=== PATIENT | male | born 1945 | race Caucasian/White ===

== ENCOUNTER → 2017-10-17 | Outpatient (CLI) | payer MEDICARE, BC | END | disposition home or self-care (01) | LOC: HKI 15:07 | DX: M23.221 Derangement of posterior horn of medial meniscus due to old tear or injury, right knee (principal) | CPT/HCPCS: G0463 ==

== ENCOUNTER → 2018-04-09 | Outpatient (CLI) | payer MEDICARE, BC | END | disposition home or self-care (01) | LOC: PUL 13:40 | DX: Z00.00 Encounter for general adult medical examination without abnormal findings (principal); J44.9 Chronic obstructive pulmonary disease, unspecified; Z79.899 Other long term (current) drug therapy | CPT/HCPCS: 94060; 94726; 94729 ==

== ENCOUNTER 2019-01-10 16:39 | Inpatient (IN) | payer MEDICARE, BC ==
[2019-01-10 17:13] LABS: ADD MAN DIFF? NO
[2019-01-10 17:18] LABS: ABNORMAL IP MESSAGE 1; BASOPHILS % 0.3 % (0.0-2.0); EOSINOPHILS # 0.1 10^3/ul (0.0-0.5); EOSINOPHILS % 1.5 % (0.0-7.0); HEMATOCRIT 30.1 % (42.0-52.0); HEMOGLOBIN 10.4 g/dl (14.0-18.0); LYMPHOCYTES # 0.5 10^3/ul (0.8-2.9); LYMPHOCYTES % 7.2 % (15.0-51.0); MEAN CORPUSCULAR HEMOGLOBIN 31.9 pg (29.0-33.0); MEAN CORPUSCULAR HGB CONC 34.6 g/dl (32.0-37.0); MEAN CORPUSCULAR VOLUME 92.3 fl (82.0-101.0); MEAN PLATELET VOLUME 10.1 fl (7.4-10.4); MONOCYTE # 0.8 10^3/ul (0.3-0.9); MONOCYTES % 10.2 % (0.0-11.0); NEUTROPHIL # 5.9 10^3/ul (1.6-7.5); NEUTROPHILS % 79.7 % (39.0-77.0); PLATELET COUNT 243 10^3/UL (140-415); POSITIVE DIFF @See below; RED BLOOD COUNT 3.26 10^6/ul (4.70-6.10); RED CELL DISTRIBUTION WIDTH 11.4 % (11.5-14.5)
[2019-01-10 17:18] LABS: WHITE BLOOD COUNT 7.5 10^3/ul (4.8-10.8)
[2019-01-10 17:37] LABS: INR 1.15; PROTIME 14.8 Sec (11.9-14.9); PT RATIO 1.2
[2019-01-10 17:38] LABS: PARTIAL THROMBOPLASTIN TIME 47.5 Sec (23.0-35.0)
[2019-01-10 17:52] LABS: ALANINE AMINOTRANSFERASE 13 IU/L (13-69); ALBUMIN 4.3 g/dl (3.3-4.9); ALBUMIN/GLOBULIN RATIO 1.07; ALKALINE PHOSPHATASE 91 IU/L (42-121); ANION GAP 14 (5-13); ASPARTATE AMINO TRANSFERASE 18 IU/L (15-46); BILIRUBIN,INDIRECT 0.1 mg/dl (0-1.1); BILIRUBIN,TOTAL 0.1 mg/dl (0.2-1.3); BLOOD UREA NITROGEN 39 mg/dl (7-20); CALCIUM 9.9 mg/dl (8.4-10.2); CARBON DIOXIDE 20 mmol/L (21-31); CHLORIDE 100 mmol/L (97-110); CREATININE 3.07 mg/dl (0.61-1.24); GLUCOSE 126 mg/dl (70-220); POTASSIUM 3.7 mmol/L (3.5-5.1); SODIUM 134 mmol/L (135-144); TOTAL PROTEIN 8.3 g/dl (6.1-8.1)
[2019-01-10 18:00] LABS: ADD UMIC YES; UR ASCORBIC ACID NEGATIVE (NEGATIVE); UR BILIRUBIN (Dip) NEGATIVE (NEGATIVE); UR BLOOD (Dip) 1+ mg/dL (NEGATIVE); UR CLARITY CLEAR (CLEAR); UR COLOR YELLOW (YELLOW); UR GLUCOSE (Dip) NEGATIVE (NEGATIVE); UR KETONES (Dip) NEGATIVE (NEGATIVE); UR LEUKOCYTE ESTERASE (Dip) NEGATIVE Leu/ul (NEGATIVE); UR NITRITE (Dip) NEGATIVE (NEGATIVE); UR RBC 1 /HPF (0-5); UR TOTAL PROTEIN (Dip) 2+ mg/dl (NEGATIVE); UR UROBILINOGEN (Dip) NEGATIVE (NEGATIVE); UR WBC 8 /HPF (0-5)
[2019-01-10] MEDS ORDERED: ACETAMINOPHEN 325 MG TAB PO (19:00)
[2019-01-10] MEDS ORDERED: ONDANSETRON 4 MG INJ IV (19:00)
[2019-01-10] MEDS: D5W-0.45 NACL + KCL 10 MEQ 1,000 ML IV (23:21)
[2019-01-11] MEDS: ONDANSETRON (ODT) 4 MG TAB ODT (04:15)
[2019-01-11] MEDS: PANTOPRAZOLE (EC) 40 MG TAB PO (05:38)
[2019-01-11 05:59] LABS: ADD MAN DIFF? NO
[2019-01-11 06:06] LABS: ABNORMAL IP MESSAGE 1; BASOPHILS % 0.1 % (0.0-2.0); EOSINOPHILS # 0.1 10^3/ul (0.0-0.5); EOSINOPHILS % 1.4 % (0.0-7.0); HEMATOCRIT 27.6 % (42.0-52.0); HEMOGLOBIN 9.7 g/dl (14.0-18.0); LYMPHOCYTES # 0.4 10^3/ul (0.8-2.9); LYMPHOCYTES % 4.6 % (15.0-51.0); MEAN CORPUSCULAR HEMOGLOBIN 32.2 pg (29.0-33.0); MEAN CORPUSCULAR HGB CONC 35.1 g/dl (32.0-37.0); MEAN CORPUSCULAR VOLUME 91.7 fl (82.0-101.0); MEAN PLATELET VOLUME 10.3 fl (7.4-10.4); MONOCYTE # 0.9 10^3/ul (0.3-0.9); MONOCYTES % 11.3 % (0.0-11.0); NEUTROPHIL # 6.4 10^3/ul (1.6-7.5); NEUTROPHILS % 81.6 % (39.0-77.0); PLATELET COUNT 202 10^3/UL (140-415); POSITIVE DIFF @See below; RED BLOOD COUNT 3.01 10^6/ul (4.70-6.10); RED CELL DISTRIBUTION WIDTH 11.4 % (11.5-14.5)
[2019-01-11 06:06] LABS: WHITE BLOOD COUNT 7.9 10^3/ul (4.8-10.8)
[2019-01-11 06:36] LABS: IRON 18 ug/dl (35-150)
[2019-01-11 06:38] LABS: ANION GAP 13 (5-13); BLOOD UREA NITROGEN 39 mg/dl (7-20); CALCIUM 9.5 mg/dl (8.4-10.2); CARBON DIOXIDE 19 mmol/L (21-31); CHLORIDE 101 mmol/L (97-110); CREATININE 2.84 mg/dl (0.61-1.24); GLUCOSE 116 mg/dl (70-220); POTASSIUM 3.4 mmol/L (3.5-5.1); SODIUM 133 mmol/L (135-144)
[2019-01-11 06:45] LABS: % IRON SATURATION 5 % SAT (22-52); TOTAL IRON BINDING CAPACITY 344 ug/dl (241-421)
[2019-01-11 07:36] LABS: ERYTHROCYTE SEDIMENTATION RATE > 130 mm/Hr (0-20)
[2019-01-11 07:40] LABS: FOLATE 6.2 ng/ml (2.8-20.0)
[2019-01-11] MEDS: ESCITALOPRAM 10 MG TAB PO (08:50)
[2019-01-11] MEDS: NIFEdipine (XL) 30 MG TAB PO (08:50)
[2019-01-11] MEDS: D5W-0.45 NACL + KCL 10 MEQ 1,000 ML IV ×2 (12:34→15:00)
[2019-01-11] MEDS: ALBUTEROL HFA 8 GM INHALER INH (14:06)
[2019-01-11] MEDS: ACETAMINOPHEN 325 MG TAB PO ×2 (14:06→20:50)
[2019-01-11 15:20] LABS: AMYLASE 193 U/L (11-123)
[2019-01-11 15:33] LABS: LIPASE 2711 U/L (23-300)
[2019-01-11] MEDS: POTASSIUM CHLORIDE (SR) 20 MEQ TAB PO (16:24)
[2019-01-11] MEDS: SOD CHLORIDE 0.9% 1,000 ML IV (16:25)
[2019-01-11] MEDS: EPOETIN ALFA-EPBX (NON-ESRD 10,000 UNIT/ML VIAL SC (17:36)
[2019-01-11] MEDS: BARIUM SULF 2% 450 ML BTL (BERRY SMOOTHIE) PO (18:10)
[2019-01-11 19:19] LABS: SODIUM,URINE RANDOM 45 mmol/L (30-90)
[2019-01-11 19:23] LABS: AADO2 Arterial 42.8 mmHg (7.0-24.0); Allen Test ACCEPTAB; Arterial Base Excess -7.8 mmol/L (-3.0-3); Arterial Blood Gas Oxygen Sat 95.8 mmHG (95.0-100.0); Arterial COHb 0.3 % (0.0-3.0); Arterial Fraction of Oxyhgb 95.3 % (93.0-99.0); Arterial MetHb 0.2 % (0.0-1.5); Arterial pCO2 23.1 mmhg (35-45); MODE ROOM AIR; Site Right Radial
[2019-01-11 19:24] LABS: CREATININE,URINE RANDOM 56.22 mg/dl (20-370); PROTEIN/CREAT RATIO 2.17 RATIO
[2019-01-11] MEDS: MONTELUKAST 10 MG TAB PO (20:50)
[2019-01-11] MEDS: TAMSULOSIN (SR) 0.4 MG CAP PO (20:50)
[2019-01-11] MEDS: ROPINIROLE 0.25 MG TAB PO (20:50)
[2019-01-12 05:01] LABS: OCCULT BLOOD STOOL NEGATIVE (NEGATIVE)
[2019-01-12] MEDS: SOD CHLORIDE 0.9% 1,000 ML IV ×3 (05:02→21:53)
[2019-01-12] MEDS: PANTOPRAZOLE (EC) 40 MG TAB PO (05:03)
[2019-01-12 07:27] LABS: ADD MAN DIFF? NO
[2019-01-12 07:32] LABS: ABNORMAL IP MESSAGE 1; BASOPHILS % 0.2 % (0.0-2.0); EOSINOPHILS # 0.2 10^3/ul (0.0-0.5); EOSINOPHILS % 2.6 % (0.0-7.0); HEMATOCRIT 28.8 % (42.0-52.0); HEMOGLOBIN 9.6 g/dl (14.0-18.0); LYMPHOCYTES # 0.4 10^3/ul (0.8-2.9); LYMPHOCYTES % 6.9 % (15.0-51.0); MEAN CORPUSCULAR HEMOGLOBIN 31.2 pg (29.0-33.0); MEAN CORPUSCULAR HGB CONC 33.3 g/dl (32.0-37.0); MEAN CORPUSCULAR VOLUME 93.5 fl (82.0-101.0); MEAN PLATELET VOLUME 10.9 fl (7.4-10.4); MONOCYTE # 0.7 10^3/ul (0.3-0.9); MONOCYTES % 12.3 % (0.0-11.0); NEUTROPHIL # 4.4 10^3/ul (1.6-7.5); NEUTROPHILS % 77.1 % (39.0-77.0); PLATELET COUNT 210 10^3/UL (140-415); POSITIVE DIFF @See below; RED BLOOD COUNT 3.08 10^6/ul (4.70-6.10); RED CELL DISTRIBUTION WIDTH 11.4 % (11.5-14.5)
[2019-01-12 07:32] LABS: WHITE BLOOD COUNT 5.7 10^3/ul (4.8-10.8)
[2019-01-12 07:51] LABS: ANION GAP 12 (5-13); BLOOD UREA NITROGEN 32 mg/dl (7-20); CALCIUM 9.5 mg/dl (8.4-10.2); CARBON DIOXIDE 20 mmol/L (21-31); CHLORIDE 103 mmol/L (97-110); CREATININE 2.77 mg/dl (0.61-1.24); GLUCOSE 99 mg/dl (70-220); MAGNESIUM 2.1 mg/dl (1.7-2.5); PHOSPHORUS 4.2 mg/dl (2.5-4.9); POTASSIUM 3.7 mmol/L (3.5-5.1); SODIUM 135 mmol/L (135-144)
[2019-01-12] MEDS: ACETAMINOPHEN 325 MG TAB PO ×2 (07:51→16:51)
[2019-01-12 08:32] LABS: ERYTHROCYTE SEDIMENTATION RATE > 130 mm/Hr (0-20)
[2019-01-12] MEDS: ESCITALOPRAM 10 MG TAB PO (09:01)
[2019-01-12] MEDS: NIFEdipine (XL) 30 MG TAB PO (09:01)
[2019-01-12 11:46] LABS: PROSTATE SPECIFIC ANTIGEN 1.9 ng/ml (0.0-4.0)
[2019-01-12 11:48] LABS: CARCINOEMBRYONIC ANTIGEN 1.2 ng/ml (0.0-5.0)
[2019-01-12 11:52] LABS: CANCER ANTIGEN 19-9 9.7 U/ml (0.0-37.0)
[2019-01-12] MEDS ORDERED: LIDOCAINE 2% (SDV) 5 ML INJ (12:13)
[2019-01-12] MEDS ORDERED: GLYCOPYRROLATE 0.4 MG INJ (12:13)
[2019-01-12] MEDS: PROPOFOL 20 ML (12:13)
[2019-01-12] MEDS ORDERED: SOD FERRIC GLUC COMPLX 125 MG in SOD CHLORIDE 0.9% 100 ML IVPB (13:00)
[2019-01-12 13:03] LABS: ADD UMIC YES; UR ASCORBIC ACID NEGATIVE (NEGATIVE); UR BILIRUBIN (Dip) NEGATIVE (NEGATIVE); UR BLOOD (Dip) 2+ mg/dL (NEGATIVE); UR CLARITY CLEAR (CLEAR); UR COLOR YELLOW (YELLOW); UR GLUCOSE (Dip) NEGATIVE (NEGATIVE); UR KETONES (Dip) NEGATIVE (NEGATIVE); UR LEUKOCYTE ESTERASE (Dip) NEGATIVE Leu/ul (NEGATIVE); UR NITRITE (Dip) NEGATIVE (NEGATIVE); UR RBC 5 /HPF (0-5); UR SPECIFIC GRAVITY (Dip) 1.009 (1.003-1.030); UR TOTAL PROTEIN (Dip) 2+ mg/dl (NEGATIVE); UR UROBILINOGEN (Dip) NEGATIVE (NEGATIVE); UR WBC 6 /HPF (0-5)
[2019-01-12] MEDS: SOD FERRIC GLUC COMPLX 125 MG in SOD CHLORIDE 0.9% 100 ML IVPB (13:25)
[2019-01-12 18:08] LABS: OCCULT BLOOD STOOL NEGATIVE (NEGATIVE)
[2019-01-12] MEDS ORDERED: AL HYDROX/MG HYDROX/SIMETH 30 ML CUP (19:53)
[2019-01-12] MEDS: MONTELUKAST 10 MG TAB PO (20:45)
[2019-01-12] MEDS: TAMSULOSIN (SR) 0.4 MG CAP PO (20:45)
[2019-01-12] MEDS: ROPINIROLE 0.25 MG TAB PO (20:45)
[2019-01-12] MEDS: AL HYDROX/MG HYDROX/SIMETH 30 ML CUP PO (20:48)
[2019-01-13] MEDS: ACETAMINOPHEN 325 MG TAB PO ×3 (00:11→21:09)
[2019-01-13] MEDS: ALBUTEROL HFA 8 GM INHALER INH ×3 (00:11→21:09)
[2019-01-13 05:21] LABS: ADD MAN DIFF? NO
[2019-01-13 05:25] LABS: WHITE BLOOD COUNT 5.4 10^3/ul (4.8-10.8)
[2019-01-13 05:25] LABS: ABNORMAL IP MESSAGE 1; BASOPHILS % 0.4 % (0.0-2.0); EOSINOPHILS # 0.2 10^3/ul (0.0-0.5); EOSINOPHILS % 4.2 % (0.0-7.0); HEMOGLOBIN 9.5 g/dl (14.0-18.0); LYMPHOCYTES # 0.6 10^3/ul (0.8-2.9); LYMPHOCYTES % 10.9 % (15.0-51.0); MEAN CORPUSCULAR HEMOGLOBIN 31.5 pg (29.0-33.0); MEAN CORPUSCULAR HGB CONC 33.9 g/dl (32.0-37.0); MEAN CORPUSCULAR VOLUME 92.7 fl (82.0-101.0); MEAN PLATELET VOLUME 10.3 fl (7.4-10.4); MONOCYTE # 0.7 10^3/ul (0.3-0.9); MONOCYTES % 13.6 % (0.0-11.0); NEUTROPHIL # 3.8 10^3/ul (1.6-7.5); NEUTROPHILS % 69.6 % (39.0-77.0); PLATELET COUNT 209 10^3/UL (140-415); POSITIVE DIFF @See below; RED BLOOD COUNT 3.02 10^6/ul (4.70-6.10); RED CELL DISTRIBUTION WIDTH 11.5 % (11.5-14.5)
[2019-01-13 05:52] LABS: ALANINE AMINOTRANSFERASE 20 IU/L (13-69); ALBUMIN 3.2 g/dl (3.3-4.9); ALBUMIN/GLOBULIN RATIO 0.88; ALKALINE PHOSPHATASE 75 IU/L (42-121); AMYLASE 148 U/L (11-123); ANION GAP 11 (5-13); ASPARTATE AMINO TRANSFERASE 29 IU/L (15-46); BILIRUBIN,INDIRECT 0.2 mg/dl (0-1.1); BILIRUBIN,TOTAL 0.2 mg/dl (0.2-1.3); BLOOD UREA NITROGEN 28 mg/dl (7-20); CALCIUM 9.6 mg/dl (8.4-10.2); CARBON DIOXIDE 21 mmol/L (21-31); CHLORIDE 107 mmol/L (97-110); CREATININE 2.43 mg/dl (0.61-1.24); GLUCOSE 94 mg/dl (70-220); LIPASE 1408 U/L (23-300); MAGNESIUM 2.1 mg/dl (1.7-2.5); PHOSPHORUS 4.3 mg/dl (2.5-4.9); SODIUM 139 mmol/L (135-144); TOTAL PROTEIN 6.8 g/dl (6.1-8.1)
[2019-01-13] MEDS: PANTOPRAZOLE (EC) 40 MG TAB PO (06:20)
[2019-01-13] MEDS: ESCITALOPRAM 10 MG TAB PO (08:12)
[2019-01-13] MEDS: NIFEdipine (XL) 30 MG TAB PO (08:12)
[2019-01-13] MEDS: SOD CHLORIDE 0.9% 1,000 ML IV (11:41)
[2019-01-13 12:12] LABS: LACTATE DEHYDROGENASE 292 IU/L (313-618)
[2019-01-13] MEDS: SOD FERRIC GLUC COMPLX 125 MG in SOD CHLORIDE 0.9% 100 ML IVPB (13:29)
[2019-01-13] MEDS: TAMSULOSIN (SR) 0.4 MG CAP PO (21:08)
[2019-01-13] MEDS: MONTELUKAST 10 MG TAB PO (21:08)
[2019-01-13] MEDS: ROPINIROLE 0.25 MG TAB PO (21:08)
[2019-01-13] MEDS: GUAIFENESIN/DM 5ML CUP PO (21:42)
[2019-01-14] MEDS: SOD CHLORIDE 0.9% 1,000 ML IV (02:09)
[2019-01-14 05:01] LABS: ADD MAN DIFF? NO
[2019-01-14 05:13] LABS: ABNORMAL IP MESSAGE 1; BASOPHILS % 0.4 % (0.0-2.0); EOSINOPHILS # 0.2 10^3/ul (0.0-0.5); EOSINOPHILS % 4.9 % (0.0-7.0); HEMOGLOBIN 9.1 g/dl (14.0-18.0); LYMPHOCYTES # 0.6 10^3/ul (0.8-2.9); LYMPHOCYTES % 11.5 % (15.0-51.0); MEAN CORPUSCULAR HEMOGLOBIN 30.8 pg (29.0-33.0); MEAN CORPUSCULAR HGB CONC 33.7 g/dl (32.0-37.0); MEAN CORPUSCULAR VOLUME 91.5 fl (82.0-101.0); MEAN PLATELET VOLUME 10.4 fl (7.4-10.4); MONOCYTE # 0.6 10^3/ul (0.3-0.9); MONOCYTES % 11.5 % (0.0-11.0); NEUTROPHIL # 3.4 10^3/ul (1.6-7.5); NEUTROPHILS % 70.7 % (39.0-77.0); PLATELET COUNT 205 10^3/UL (140-415); POSITIVE DIFF @See below; RED BLOOD COUNT 2.95 10^6/ul (4.70-6.10); RED CELL DISTRIBUTION WIDTH 11.6 % (11.5-14.5)
[2019-01-14 05:13] LABS: WHITE BLOOD COUNT 4.9 10^3/ul (4.8-10.8)
[2019-01-14 05:33] LABS: ALANINE AMINOTRANSFERASE 30 IU/L (13-69); ALBUMIN 3.2 g/dl (3.3-4.9); ALBUMIN/GLOBULIN RATIO 0.94; ALKALINE PHOSPHATASE 69 IU/L (42-121); AMYLASE 108 U/L (11-123); ANION GAP 11 (5-13); ASPARTATE AMINO TRANSFERASE 31 IU/L (15-46); BILIRUBIN,INDIRECT 0.1 mg/dl (0-1.1); BILIRUBIN,TOTAL 0.1 mg/dl (0.2-1.3); BLOOD UREA NITROGEN 23 mg/dl (7-20); CALCIUM 9.3 mg/dl (8.4-10.2); CARBON DIOXIDE 18 mmol/L (21-31); CHLORIDE 108 mmol/L (97-110); CREATININE 2.33 mg/dl (0.61-1.24); GLUCOSE 90 mg/dl (70-220); LIPASE 748 U/L (23-300); MAGNESIUM 1.9 mg/dl (1.7-2.5); POTASSIUM 3.3 mmol/L (3.5-5.1); SODIUM 137 mmol/L (135-144); TOTAL PROTEIN 6.6 g/dl (6.1-8.1)
[2019-01-14] MEDS: PANTOPRAZOLE (EC) 40 MG TAB PO (06:17)
[2019-01-14] MEDS: MEGESTROL (40 MG/ML) 10ML CUP PO (08:37)
[2019-01-14] MEDS: MOMETASONE 0.24 GM INHALER INH ×2 (08:37→20:49)
[2019-01-14] MEDS: ESCITALOPRAM 10 MG TAB PO (08:38)
[2019-01-14] MEDS: NIFEdipine (XL) 30 MG TAB PO (08:38)
[2019-01-14 08:52] LABS: ERYTHROCYTE SEDIMENTATION RATE > 130 mm/Hr (0-20)
[2019-01-14] MEDS: POTASSIUM CHLORIDE (SR) 10 MEQ TAB PO (09:10)
[2019-01-14 10:22] LABS: PARTIAL THROMBOPLASTIN TIME 50.4 Sec (23.0-35.0)
[2019-01-14 10:48] LABS: COLLAGEN/EPI 93 Secs. (51-198)
[2019-01-14 11:43] LABS: COMPLEMENT C3 138 mg/dl (88-165); COMPLEMENT C4 24 mg/dl (14-44)
[2019-01-14 12:28] LABS: HEPATITIS C VIRAL ANTIBODY NEGATIVE (NEGATIVE)
[2019-01-14 12:30] LABS: HEPATITIS B SURFACE ANTIBODY NEGATIVE (NEGATIVE)
[2019-01-14] MEDS: SOD FERRIC GLUC COMPLX 125 MG in SOD CHLORIDE 0.9% 100 ML IVPB (13:54)
[2019-01-14] MEDS: EPOETIN ALFA-EPBX (NON-ESRD 10,000 UNIT/ML VIAL SC (17:53)
[2019-01-14] MEDS: TAMSULOSIN (SR) 0.4 MG CAP PO (20:48)
[2019-01-14] MEDS: ROPINIROLE 0.25 MG TAB PO (20:48)
[2019-01-14] MEDS: MONTELUKAST 10 MG TAB PO (20:48)
[2019-01-14] MEDS: ALBUTEROL HFA 8 GM INHALER INH (21:04)
[2019-01-14] MEDS: ACETAMINOPHEN 325 MG TAB PO (21:04)
[2019-01-15] MEDS: PANTOPRAZOLE (EC) 40 MG TAB PO (05:58)
[2019-01-15 06:44] LABS: ADD MAN DIFF? NO
[2019-01-15 06:52] LABS: WHITE BLOOD COUNT 5.9 10^3/ul (4.8-10.8)
[2019-01-15 06:52] LABS: BASOPHILS % 0.3 % (0.0-2.0); EOSINOPHILS # 0.3 10^3/ul (0.0-0.5); EOSINOPHILS % 4.3 % (0.0-7.0); HEMATOCRIT 25.9 % (42.0-52.0); HEMOGLOBIN 8.9 g/dl (14.0-18.0); LYMPHOCYTES # 0.7 10^3/ul (0.8-2.9); LYMPHOCYTES % 12.6 % (15.0-51.0); MEAN CORPUSCULAR HEMOGLOBIN 31.6 pg (29.0-33.0); MEAN CORPUSCULAR HGB CONC 34.4 g/dl (32.0-37.0); MEAN CORPUSCULAR VOLUME 91.8 fl (82.0-101.0); MEAN PLATELET VOLUME 10.2 fl (7.4-10.4); MONOCYTE # 0.6 10^3/ul (0.3-0.9); MONOCYTES % 9.5 % (0.0-11.0); NEUTROPHIL # 4.2 10^3/ul (1.6-7.5); NEUTROPHILS % 71.6 % (39.0-77.0); PLATELET COUNT 246 10^3/UL (140-415); RED BLOOD COUNT 2.82 10^6/ul (4.70-6.10); RED CELL DISTRIBUTION WIDTH 11.7 % (11.5-14.5)
[2019-01-15 07:17] LABS: PROTEIN, TOTAL 6.2 g/dL (6.1-8.1)
[2019-01-15 07:20] LABS: ANION GAP 9 (5-13); BLOOD UREA NITROGEN 21 mg/dl (7-20); CALCIUM 9.2 mg/dl (8.4-10.2); CARBON DIOXIDE 19 mmol/L (21-31); CHLORIDE 110 mmol/L (97-110); CREATININE 2.16 mg/dl (0.61-1.24); GLUCOSE 106 mg/dl (70-220); MAGNESIUM 1.9 mg/dl (1.7-2.5); POTASSIUM 3.4 mmol/L (3.5-5.1); SODIUM 138 mmol/L (135-144)
[2019-01-15] MEDS ORDERED: D5-NS + KCL 40 MEQ 1,000 ML IV ×2 (08:00→08:13)
[2019-01-15] MEDS: ESCITALOPRAM 10 MG TAB PO (09:42)
[2019-01-15] MEDS: POTASSIUM CHLORIDE (SR) 20 MEQ TAB PO (09:42)
[2019-01-15] MEDS: MEGESTROL (40 MG/ML) 10ML CUP PO (09:43)
[2019-01-15] MEDS: NIFEdipine (XL) 30 MG TAB PO (09:43)
[2019-01-15] MEDS: CYANOCOBALAMIN 1000 MCG INJ IM (09:43)
[2019-01-15] MEDS: SOD CHLORIDE 0.9% 1,000 ML IV (09:44)
[2019-01-15] MEDS: MOMETASONE 0.24 GM INHALER INH ×2 (09:44→21:58)
[2019-01-15 14:31] LABS: ANA SCREEN NEGATIVE (NEGATIVE)
[2019-01-15] MEDS: SOD FERRIC GLUC COMPLX 125 MG in SOD CHLORIDE 0.9% 100 ML IVPB (15:08)
[2019-01-15 16:06] LABS: MYELOPEROXIDASE ANTIBODY <1.0 AI; PROTEINASE-3 ANTIBODY <1.0 AI
[2019-01-15] MEDS: PHYTONADIONE 5 MG in DEXTROSE 5% 50 ML IVPB (17:42)
[2019-01-15 18:31] LABS: COMPLEMENT, TOTAL (CH50) >60 U/mL (31-60)
[2019-01-15] MEDS: TAMSULOSIN (SR) 0.4 MG CAP PO (22:03)
[2019-01-15] MEDS: ROPINIROLE 0.25 MG TAB PO (22:03)
[2019-01-15] MEDS: ACETAMINOPHEN 325 MG TAB PO (22:04)
[2019-01-15] MEDS: MONTELUKAST 10 MG TAB PO (22:04)
[2019-01-15 23:22] LABS: ALBUMIN 2.9 g/dL (3.8-4.8); ALPHA-1-GLOBULINS 0.5 g/dL (0.2-0.3); ALPHA-2-GLOBULINS 1.1 g/dL (0.5-0.9); BETA 2 GLOBULINS 0.3 g/dL (0.2-0.5); BETA GLOBULINS 0.5 g/dL (0.4-0.6); GAMMA GLOBULINS 0.9 g/dL (0.8-1.7)
[2019-01-16] MEDS: PANTOPRAZOLE (EC) 40 MG TAB PO (05:05)
[2019-01-16] MEDS: SOD CHLORIDE 0.9% 1,000 ML IV (05:22)
[2019-01-16 05:41] LABS: ADD MAN DIFF? NO
[2019-01-16 05:49] LABS: BASOPHILS % 0.5 % (0.0-2.0); EOSINOPHILS # 0.3 10^3/ul (0.0-0.5); EOSINOPHILS % 4.4 % (0.0-7.0); HEMATOCRIT 26.6 % (42.0-52.0); HEMOGLOBIN 9.1 g/dl (14.0-18.0); LYMPHOCYTES # 0.8 10^3/ul (0.8-2.9); LYMPHOCYTES % 12.8 % (15.0-51.0); MEAN CORPUSCULAR HEMOGLOBIN 31.7 pg (29.0-33.0); MEAN CORPUSCULAR HGB CONC 34.2 g/dl (32.0-37.0); MEAN CORPUSCULAR VOLUME 92.7 fl (82.0-101.0); MEAN PLATELET VOLUME 10.2 fl (7.4-10.4); MONOCYTE # 0.5 10^3/ul (0.3-0.9); MONOCYTES % 8.6 % (0.0-11.0); NEUTROPHIL # 4.4 10^3/ul (1.6-7.5); NEUTROPHILS % 70.9 % (39.0-77.0); PLATELET COUNT 248 10^3/UL (140-415); RED BLOOD COUNT 2.87 10^6/ul (4.70-6.10); RED CELL DISTRIBUTION WIDTH 11.9 % (11.5-14.5)
[2019-01-16 05:49] LABS: WHITE BLOOD COUNT 6.2 10^3/ul (4.8-10.8)
[2019-01-16] MEDS: ALBUTEROL HFA 8 GM INHALER INH (05:55)
[2019-01-16 05:56] LABS: ALANINE AMINOTRANSFERASE 31 IU/L (13-69); ALBUMIN 3.2 g/dl (3.3-4.9); ALKALINE PHOSPHATASE 82 IU/L (42-121); ASPARTATE AMINO TRANSFERASE 29 IU/L (15-46); BILIRUBIN,INDIRECT 0.1 mg/dl (0-1.1); BILIRUBIN,TOTAL 0.1 mg/dl (0.2-1.3); TOTAL PROTEIN 6.6 g/dl (6.1-8.1)
[2019-01-16 06:02] LABS: INR 1.07; PT RATIO 1.1
[2019-01-16 06:03] LABS: PARTIAL THROMBOPLASTIN TIME 52.7 Sec (23.0-35.0)
[2019-01-16 06:05] LABS: ANION GAP 8 (5-13); BLOOD UREA NITROGEN 17 mg/dl (7-20); CALCIUM 9.4 mg/dl (8.4-10.2); CARBON DIOXIDE 17 mmol/L (21-31); CHLORIDE 113 mmol/L (97-110); CREATININE 2.01 mg/dl (0.61-1.24); GLUCOSE 102 mg/dl (70-220); MAGNESIUM 1.7 mg/dl (1.7-2.5); PHOSPHORUS 3.6 mg/dl (2.5-4.9); POTASSIUM 3.8 mmol/L (3.5-5.1); SODIUM 138 mmol/L (135-144)
[2019-01-16 06:10] LABS: LIPASE 674 U/L (23-300)
[2019-01-16] MEDS: MEGESTROL (40 MG/ML) 10ML CUP PO (09:00)
[2019-01-16] MEDS: MOMETASONE 0.24 GM INHALER INH (09:48)
[2019-01-16] MEDS: NIFEdipine (XL) 30 MG TAB PO (09:54)
[2019-01-16] MEDS: ESCITALOPRAM 10 MG TAB PO (09:54)
[2019-01-16] MEDS: CYANOCOBALAMIN 1000 MCG INJ IM (09:54)
[2019-01-16] MEDS: ACETAMINOPHEN 325 MG TAB PO ×2 (09:54→21:01)
[2019-01-16] MEDS: FENTAnyl 50 MCG/ML VIAL (12:28)
[2019-01-16] MEDS: LIDOCAINE 1% (MPF) 5 ML VIAL ×2 (12:43)
[2019-01-16] MEDS: MIDAZOLAM 1 MG/ML 2 ML INJ (13:10)
[2019-01-16] MEDS: SOD FERRIC GLUC COMPLX 125 MG in SOD CHLORIDE 0.9% 100 ML IVPB (14:31)
[2019-01-16 16:02] LABS: CREATININE, RANDOM URINE 49 mg/dL (20-320); PROTEIN/CREATININE RATIO 1510 mg/g creat (22-128)
[2019-01-16] MEDS: EPOETIN ALFA-EPBX (NON-ESRD 10,000 UNIT/ML VIAL SC (18:22)
[2019-01-16 19:06] LABS: ADD UMIC YES; UR ASCORBIC ACID NEGATIVE (NEGATIVE); UR BILIRUBIN (Dip) NEGATIVE (NEGATIVE); UR BLOOD (Dip) 1+ mg/dL (NEGATIVE); UR CLARITY CLEAR (CLEAR); UR COLOR STRAW (YELLOW); UR GLUCOSE (Dip) NEGATIVE (NEGATIVE); UR KETONES (Dip) NEGATIVE (NEGATIVE); UR LEUKOCYTE ESTERASE (Dip) TRACE Leu/ul (NEGATIVE); UR NITRITE (Dip) NEGATIVE (NEGATIVE); UR RBC 1 /HPF (0-5); UR SPECIFIC GRAVITY (Dip) 1.006 (1.003-1.030); UR TOTAL PROTEIN (Dip) 1+ mg/dl (NEGATIVE); UR UROBILINOGEN (Dip) NEGATIVE (NEGATIVE); UR WBC 2 /HPF (0-5)
[2019-01-16 19:42] LABS: CREATININE,URINE RANDOM 32.78 mg/dl (20-370); PROTEIN/CREAT RATIO 1.61 RATIO
[2019-01-16] MEDS: ROPINIROLE 0.25 MG TAB PO (21:00)
[2019-01-16] MEDS: TAMSULOSIN (SR) 0.4 MG CAP PO (21:00)
[2019-01-16] MEDS ORDERED: FLUNISOLIDE INH (21:00)
[2019-01-16] MEDS: MONTELUKAST 10 MG TAB PO (21:00)
[2019-01-17] MEDS: PANTOPRAZOLE (EC) 40 MG TAB PO (05:29)
[2019-01-17] MEDS: ALBUTEROL HFA 8 GM INHALER INH (06:25)
[2019-01-17 07:06] LABS: ADD MAN DIFF? NO
[2019-01-17 07:13] LABS: WHITE BLOOD COUNT 7.3 10^3/ul (4.8-10.8)
[2019-01-17 07:13] LABS: BASOPHILS % 0.3 % (0.0-2.0); EOSINOPHILS # 0.3 10^3/ul (0.0-0.5); EOSINOPHILS % 3.9 % (0.0-7.0); HEMATOCRIT 30.7 % (42.0-52.0); HEMOGLOBIN 10.3 g/dl (14.0-18.0); LYMPHOCYTES # 0.8 10^3/ul (0.8-2.9); LYMPHOCYTES % 11.6 % (15.0-51.0); MEAN CORPUSCULAR HEMOGLOBIN 30.9 pg (29.0-33.0); MEAN CORPUSCULAR HGB CONC 33.6 g/dl (32.0-37.0); MEAN CORPUSCULAR VOLUME 92.2 fl (82.0-101.0); MONOCYTE # 0.6 10^3/ul (0.3-0.9); MONOCYTES % 8.1 % (0.0-11.0); NEUTROPHIL # 5.3 10^3/ul (1.6-7.5); NEUTROPHILS % 72.8 % (39.0-77.0); PLATELET COUNT 304 10^3/UL (140-415); RED BLOOD COUNT 3.33 10^6/ul (4.70-6.10); RED CELL DISTRIBUTION WIDTH 12.3 % (11.5-14.5)
[2019-01-17 07:42] LABS: ANION GAP 11 (5-13); BLOOD UREA NITROGEN 14 mg/dl (7-20); CALCIUM 9.6 mg/dl (8.4-10.2); CARBON DIOXIDE 14 mmol/L (21-31); CHLORIDE 114 mmol/L (97-110); CREATININE 1.86 mg/dl (0.61-1.24); GLUCOSE 112 mg/dl (70-220); MAGNESIUM 1.7 mg/dl (1.7-2.5); PHOSPHORUS 4.2 mg/dl (2.5-4.9); POTASSIUM 3.8 mmol/L (3.5-5.1); SODIUM 139 mmol/L (135-144)
[2019-01-17] MEDS: ACETAMINOPHEN 325 MG TAB PO ×2 (07:44→21:32)
[2019-01-17] MEDS: ESCITALOPRAM 10 MG TAB PO (08:55)
[2019-01-17] MEDS: CYANOCOBALAMIN 1000 MCG INJ IM (08:56)
[2019-01-17] MEDS: MEGESTROL (40 MG/ML) 10ML CUP PO (08:56)
[2019-01-17] MEDS: NIFEdipine (XL) 30 MG TAB PO (08:56)
[2019-01-17] MEDS: FLUTICASONE PROPIONATE XX ×2 (09:00→21:31)
[2019-01-17] MEDS ORDERED: FLUNISOLIDE XX (09:00)
[2019-01-17 09:45] LABS: IMMEDIATE SPIN CROSSMATCH 1
[2019-01-17 10:23] LABS: ERYTHROCYTE SEDIMENTATION RATE 135 mm/Hr (0-20)
[2019-01-17] MEDS ORDERED: LIDOCAINE 1% (MDV) 20 ML INJ (14:55)
[2019-01-17] MEDS ORDERED: morphine 2 MG INJ (15:25)
[2019-01-17 17:13] LABS: IMMEDIATE SPIN CROSSMATCH 1 3
[2019-01-17] MEDS: TAMSULOSIN (SR) 0.4 MG CAP PO (21:23)
[2019-01-17] MEDS: ROPINIROLE 0.25 MG TAB PO (21:23)
[2019-01-17] MEDS: MONTELUKAST 10 MG TAB PO (21:28)
[2019-01-17] MEDS: SOD FERRIC GLUC COMPLX 125 MG in SOD CHLORIDE 0.9% 100 ML IVPB (23:32)
[2019-01-18] MEDS: PANTOPRAZOLE (EC) 40 MG TAB PO (05:25)
[2019-01-18 07:17] LABS: ADD MAN DIFF? NO
[2019-01-18 07:21] LABS: BASOPHILS % 0.6 % (0.0-2.0); EOSINOPHILS # 0.2 10^3/ul (0.0-0.5); EOSINOPHILS % 3.7 % (0.0-7.0); HEMATOCRIT 30.9 % (42.0-52.0); HEMOGLOBIN 10.5 g/dl (14.0-18.0); LYMPHOCYTES # 0.7 10^3/ul (0.8-2.9); LYMPHOCYTES % 10.2 % (15.0-51.0); MEAN CORPUSCULAR HEMOGLOBIN 31.3 pg (29.0-33.0); MEAN CORPUSCULAR VOLUME 92.2 fl (82.0-101.0); MEAN PLATELET VOLUME 10.1 fl (7.4-10.4); MONOCYTE # 0.6 10^3/ul (0.3-0.9); MONOCYTES % 9.1 % (0.0-11.0); NEUTROPHIL # 4.7 10^3/ul (1.6-7.5); NEUTROPHILS % 72.9 % (39.0-77.0); PLATELET COUNT 262 10^3/UL (140-415); RED BLOOD COUNT 3.35 10^6/ul (4.70-6.10)
[2019-01-18 07:21] LABS: WHITE BLOOD COUNT 6.5 10^3/ul (4.8-10.8)
[2019-01-18 07:45] LABS: ANION GAP 8 (5-13); BLOOD UREA NITROGEN 14 mg/dl (7-20); CALCIUM 9.5 mg/dl (8.4-10.2); CARBON DIOXIDE 20 mmol/L (21-31); CHLORIDE 111 mmol/L (97-110); CREATININE 1.84 mg/dl (0.61-1.24); GLUCOSE 109 mg/dl (70-220); POTASSIUM 3.9 mmol/L (3.5-5.1); SODIUM 139 mmol/L (135-144)
[2019-01-18] MEDS: FLUTICASONE PROPIONATE XX (08:51)
[2019-01-18] MEDS: MEGESTROL (40 MG/ML) 10ML CUP PO (08:52)
[2019-01-18] MEDS: ESCITALOPRAM 10 MG TAB PO (08:52)
[2019-01-18] MEDS: NIFEdipine (XL) 30 MG TAB PO (08:52)
[2019-01-18] MEDS: CYANOCOBALAMIN 1000 MCG INJ IM (08:53)
[2019-01-18] MEDS: ACETAMINOPHEN 325 MG TAB PO (11:21)
[2019-01-18] MEDS: SOD FERRIC GLUC COMPLX 125 MG in SOD CHLORIDE 0.9% 100 ML IVPB (12:07)
[2019-01-18 13:43] LABS: DRVVT CONFIRMATION NEGATIVE (NEGATIVE); HEXAGONAL PHASE CONFIRMATION POSITIVE (NEGATIVE); THROMBIN CLOTTING TIME 18 sec (13-19)
[2019-01-18] MEDS: EPOETIN ALFA-EPBX (NON-ESRD 10,000 UNIT/ML VIAL SC (16:23)
== END 2019-01-18 16:55 | disposition home or self-care (01) | DRG 682 ==
LOC: E/R 16:39 → PP2 18:53
PROC: 0DB68ZX Excision of Stomach, Via Natural or Artificial Opening Endoscopic, Diagnostic (ICD-10-PCS; principal; 2019-01-12 11:34)
PROC: 07DR3ZX Extraction of Iliac Bone Marrow, Percutaneous Approach, Diagnostic (ICD-10-PCS; 2019-01-12 11:34)
PROC: 0TB03ZX Excision of Right Kidney, Percutaneous Approach, Diagnostic (ICD-10-PCS; 2019-01-12 11:34)
PROC: 30233K1 Transfusion of Nonautologous Frozen Plasma into Peripheral Vein, Percutaneous Approach (ICD-10-PCS; 2019-01-12 11:34)
PROC: 30233P1 Transfusion of Nonautologous Frozen Red Cells into Peripheral Vein, Percutaneous Approach (ICD-10-PCS; 2019-01-12 11:34)
DX: N17.9 Acute kidney failure, unspecified (principal); K85.90 Acute pancreatitis without necrosis or infection, unspecified; E87.1 Hypo-osmolality and hyponatremia; D68.9 Coagulation defect, unspecified; R63.4 Abnormal weight loss; D69.6 Thrombocytopenia, unspecified; N40.0 Benign prostatic hyperplasia without lower urinary tract symptoms; J44.9 Chronic obstructive pulmonary disease, unspecified; G25.81 Restless legs syndrome; F41.8 Other specified anxiety disorders; I48.0 Paroxysmal atrial fibrillation; I10 Essential (primary) hypertension; K29.50 Unspecified chronic gastritis without bleeding; F10.10 Alcohol abuse, uncomplicated; R63.0 Anorexia; Z68.28 Body mass index [BMI] 28.0-28.9, adult; D51.9 Vitamin B12 deficiency anemia, unspecified; D50.9 Iron deficiency anemia, unspecified
CPT/HCPCS: 36415; 36430; 36600; 71045; 71250; 74176; 74181; 76775; 77012; 80048; 80053; 80076; 81001; 81003; 82150; 82270; 82378; 82570; 82607; 82728; 82746; 82803; 83090; 83540; 83615; 83690; 83735; 83921; 84100; 84153; 84154; 84155; 84156; 84165; 84166; 84300; 84443; 85025; 85240; 85250; 85270; 85280; 85335; 85576; 85610; 85613; 85651; 85730; 86021; 86038; 86160; 86162; 86301; 86320; 86325; 86706; 86803; 86850; 86900; 86901; 86920; 87040-91; 87086; 88305; 88311; 88312; 88313; 93005; 93976; 99285-25